=== PATIENT | female | born 1940 | race Caucasian/White ===

== ENCOUNTER → 2019-06-20 | Outpatient (CLI) | payer MEDICARE, BC | LOC: M.WC 13:00 | DX: L97.321 Non-pressure chronic ulcer of left ankle limited to breakdown of skin (principal); L88 Pyoderma gangrenosum; I87.2 Venous insufficiency (chronic) (peripheral); I10 Essential (primary) hypertension; K21.9 Gastro-esophageal reflux disease without esophagitis; Z85.810 Personal history of malignant neoplasm of tongue ==

== ENCOUNTER → 2019-07-04 | Outpatient (CLI) | payer MEDICARE, BC | LOC: M.WC 04:55 | DX: L97.321 Non-pressure chronic ulcer of left ankle limited to breakdown of skin (principal); L88 Pyoderma gangrenosum; I87.2 Venous insufficiency (chronic) (peripheral); I10 Essential (primary) hypertension; K21.9 Gastro-esophageal reflux disease without esophagitis; Z85.810 Personal history of malignant neoplasm of tongue ==